=== PATIENT | male | born 1975 | race American Indian/Alaskan Native ===

== ENCOUNTER 2016-08-17 22:46 | Inpatient (IN) | payer OTHER ==
[2016-08-18 00:21] LABS: Basophils % (Auto) 0.3 % (0.0-1.8); Eosinophils % (Auto) 0.1 % (0.0-4.3); Hematocrit 49.1 % (35.5-45.6); Hemoglobin 16.1 gm/dl (11.8-15.2); Mean Corpuscular HGB Conc 33 % (32-34); Mean Corpuscular Hemoglobin 31 pg (28-32); Mean Corpuscular Volume 95 fl (84-94); Platelet Count 321 K/mm3 (140-440); Red Blood Count 5.18 M/mm3 (3.65-5.03); Red Cell Distribution Width 12.6 % (13.2-15.2); White Blood Count 10.8 K/mm3 (4.5-11.0)
[2016-08-18 00:41] LABS: BUN/Creatinine Ratio 18.46; Blood Urea Nitrogen 24 mg/dL (9-20); Calcium 10.4 mg/dL (8.4-10.2); Carbon Dioxide 19 mmol/L (22-30); Chloride 89.8 mmol/L (98-107); Potassium 5.7 mmol/L (3.6-5.0); Sodium 135 mmol/L (137-145)
[2016-08-18 00:53] LABS: Bilirubin,Urine NEG (Negative); Blood,Urine NEG (Negative); Ketones,Urine 80 mg/dL (Negative); Leukocyte Esterase,Urine NEG (Negative); Mucus,Urine FEW /HPF; Nitrite,Urine NEG (Negative); Protein,Urine <15 mg/dL mg/dL (Negative); Urobilinogen,Urine < 2.0 mg/dL (<2.0)
[2016-08-18 01:06] LABS: Anion Gap 32 mmol/L
[2016-08-18 01:07] LABS: Glucose 723 mg/dL (75-100)
[2016-08-18 02:07] LABS: B-Hydroxybutyrate 59.2 mg/dL (0.2-2.8)
[2016-08-18] MEDS ORDERED: D50W (25GM) IV PRN ×2 (04:07→15:52)
--- NOTE | 2016-08-18 04:10 | Emergency Department Report ---
ED General Adult HPI - General Chief complaint: Hyperglycemia Stated complaint: HIGH SUGAR LEVEL Time Seen by Provider: 08/18/16 03:55 Source: patient, RN notes reviewed Mode of arrival: Ambulatory Limitations: No Limitations - History of Present Illness Initial comments: This is a 41-year-old male, previously unknown to me. Has a past medical history of hypertension and obesity. He is presented to the ER with a complaint of hyperglycemia. He had outpatient laboratory studies done, and he was instructed by his physician to present to the ER. He admits to polyuria, polydipsia, fatigue. No fevers or chills. No chest pain or shortness of breath. Patient reports his symptoms have been gradual, and they're slightly increasing. As far she knows, he does not have a history of diabetes. Upon arrival, patient was found to be acidotic, with hyperglycemia, positive serum ketones, consistent with diabetic ketoacidosis. He was started on IV fluids, insulin push, insulin drip. The case was discussed with the Hospital physician, Dr. Cochran, who accepted the patient to her service. -: Gradual Severity scale (0 -10): 0 Consistency: constant Improves with: none Worsens with: none Associated Symptoms: loss of appetite, malaise, weakness. denies: confusion, chest pain, cough, diaphoresis, fever/chills - Related Data Previous Rx's Medication Instructions Recorded Last Taken Type Hydrochlorothiazide [HCTZ] 25 mg PO DAILY #30 capsule 08/19/16 Unknown Rx Insulin Aspart [NovoLOG Flexpen] 15 units SQ AC #5 pen 08/19/16 Unknown Rx Insulin Glargine,Hum.rec.anlog 50 units SQ QHS #5 pen 08/19/16 Unknown Rx [Lantus Solostar] Lisinopril [Zestril TAB] 20 mg PO QDAY #30 tablet 08/19/16 Unknown Rx Pen Needle, Diabetic [1St Tier 1 each ACHS #100 dis.needle 08/19/16 Unknown Rx Unifine Pentips Plus] glipiZIDE XL [Glucotrol Xl] 10 mg PO QDDIAB #60 tablet 08/19/16 Unknown Rx metFORMIN [Glucophage] 1,000 mg PO BIDDIAB #60 tablet 08/19/16 Unknown Rx Allergies Allergy/AdvReac Type Severity Reaction Status Date / Time No Known Allergies Allergy Unverified 01/18/17 23:33 ED Review of Systems ROS: Stated complaint: HIGH SUGAR LEVEL Other details as noted in HPI Constitutional: malaise, weakness Eyes: denies: vision change ENT: denies: epistaxis Respiratory: denies: cough Cardiovascular: denies: chest pain Gastrointestinal: denies: abdominal pain, nausea, diarrhea Genitourinary: frequency Musculoskeletal: as per HPI Skin: as per HPI Neurological: as per HPI Psychiatric: as per HPI ED Past Medical Hx - Medications Home Medications: Home Medications Medication Instructions Recorded Confirmed Last Taken Type Hydrochlorothiazide [HCTZ] 25 mg PO DAILY #30 capsule 08/19/16 Unknown Rx Insulin Aspart [NovoLOG Flexpen] 15 units SQ AC #5 pen 08/19/16 Unknown Rx Insulin Glargine,Hum.rec.anlog 50 units SQ QHS #5 pen 08/19/16 Unknown Rx [Lantus Solostar] Lisinopril [Zestril TAB] 20 mg PO QDAY #30 tablet 08/19/16 Unknown Rx Pen Needle, Diabetic [1St Tier 1 each [facility] #100 dis.needle 08/19/16 Unknown Rx Unifine Pentips Plus] glipiZIDE XL [Glucotrol Xl] 10 mg PO QDDIAB #60 tablet 08/19/16 Unknown Rx metFORMIN [Glucophage] 1,000 mg PO BIDDIAB #60 tablet 08/19/16 Unknown Rx ED Physical Exam - General Limitations: No Limitations General appearance: alert, in no apparent distress - Head Head exam: Present: atraumatic, normocephalic - Eye Eye exam: Present: normal appearance, EOMI. Absent: nystagmus - ENT ENT exam: Present: normal exam, normal orophraynx, mucous membranes moist - Neck Neck exam: Present: normal inspection, full ROM. Absent: tenderness, meningismus - Respiratory Respiratory exam: Present: normal lung sounds bilaterally. Absent: respiratory distress, wheezes, rales, rhonchi, stridor, chest wall tenderness - Cardiovascular Cardiovascular Exam: Present: normal rhythm, tachycardia, normal heart sounds. Absent: systolic murmur, diastolic murmur, rubs, gallop - GI/Abdominal GI/Abdominal exam: Present: soft, normal bowel sounds. Absent: distended, tenderness, guarding, rebound, rigid, pulsatile mass - Rectal Rectal exam: Present: deferred - Extremities Exam Extremities exam: Present: normal inspection, full ROM, normal capillary refill. Absent: tenderness, pedal edema, joint swelling, calf tenderness - Back Exam Back exam: Present: normal inspection, full ROM. Absent: tenderness, CVA tenderness (R), CVA tenderness (L), muscle spasm, paraspinal tenderness, vertebral tenderness - Neurological Exam Neurological exam: Present: alert, oriented X3, normal gait, other (Extraocular movements intact. Tongue midline. No facial droop. Facial sensation intact to light touch in the V1, V2, V3 distribution bilaterally. 5 and 5 strength in 4 extremities.. Sensation is intact to light touch in 4 extremities.). Absent : motor sensory deficit - Psychiatric Psychiatric exam: Present: normal affect, normal mood - Skin Skin exam: Present: warm, dry, intact, normal color. Absent: rash ED Course Vital Signs 08/17/16 08/18/16 08/18/16 23:33 05:44 06:56 Temperature 98.3 F 98.4 F Pulse Rate 103 H 67 Respiratory 22 20 20 Rate Blood Pressure Blood Pressure 157/103 145/65 [Left] O2 Sat by Pulse 98 98 99 Oximetry 08/18/16 08/18/16 08/18/16 07:56 08:56 09:31 Temperature 98.2 F 98.3 F Pulse Rate 70 73 75 Respiratory 20 18 14 Rate Blood Pressure Blood Pressure 140/65 141/73 [Left] O2 Sat by Pulse 99 98 Oximetry 08/18/16 08/18/16 08/18/16 10:00 11:00 12:00 Temperature Pulse Rate 72 73 74 Respiratory 16 14 17 Rate Blood Pressure 150/70 148/79 161/77 Blood Pressure [Left] O2 Sat by Pulse 97 95 98 Oximetry 08/18/16 08/18/16 08/18/16 12:11 13:00 14:00 Temperature Pulse Rate 79 70 71 Respiratory 16 15 18 Rate Blood Pressure 161/77 157/92 145/74 Blood Pressure [Left] O2 Sat by Pulse 98 98 99 Oximetry 08/18/16 08/18/16 08/18/16 15:00 15:01 17:00 Temperature 98.5 F 97.7 F Pulse Rate 77 72 90 Respiratory 16 14 18 Rate Blood Pressure 145/74 Blood Pressure 145/78 127/83 [Left] O2 Sat by Pulse 99 97 100 Oximetry ED Medical Decision Making - Lab Data Result diagrams: 08/19/16 05:47 08/19/16 09:01 Vital Signs 08/17/16 08/18/16 23:33 05:44 Temperature 98.3 F Pulse Rate 103 H Respiratory 22 20 Rate Blood Pressure 157/103 [Left] O2 Sat by Pulse 98 98 Oximetry Lab Results 08/17/16 08/18/16 08/18/16 Range/Units 23:51 00:04 00:04 WBC 10.8 (4.5-11.0) K/mm3 RBC 5.18 H (3.65-5.03) M/mm3 Hgb 16.1 H (11.8-15.2) gm/dl Hct 49.1 H (35.5-45.6) % MCV 95 H (84-94) fl MCH 31 (28-32) pg MCHC 33 (32-34) % RDW 12.6 L (13.2-15.2) % Plt Count 321 (140-440) K/mm3 Lymph % (Auto) 10.9 L (13.4-35.0) % [place] % (Auto) 7.0 (0.0-7.3) % Eos % (Auto) 0.1 (0.0-4.3) % Baso % (Auto) 0.3 (0.0-1.8) % Lymph # 1.2 (1.2-5.4) K/mm3 [place] # 0.8 (0.0-0.8) K/mm3 Eos # 0.0 (0.0-0.4) K/mm3 Baso # 0.0 (0.0-0.1) K/mm3 Seg Neutrophils % 81.7 H (40.0-70.0) % Seg Neutrophils # 8.8 H (1.8-7.7) K/mm3 VBG pH (7.320-7.420) Sodium 135 L (137-145) mmol/L Potassium 5.7 H (3.6-5.0) mmol/L Chloride 89.8 L (98-107) mmol/L Carbon Dioxide 19 L (22-30) mmol/L Anion Gap 32 mmol/L BUN 24 H (9-20) mg/dL Creatinine 1.3 (0.8-1.5) mg/dL Estimated GFR > 60 ml/min BUN/Creatinine Ratio 18.46 % Glucose 723 H* (75-100) mg/dL POC Glucose > 500 H (70-105) Hemoglobin A1c (4-6) % Calcium 10.4 H (8.4-10.2) mg/dL Phosphorus (2.5-4.5) mg/dL Magnesium (1.7-2.3) mg/dL Urine Color (Yellow) Urine Turbidity (Clear) Urine pH (5.0-7.0) Ur Specific [place] (1.003-1.030) Urine Protein (Negative) mg/dL Urine Glucose (UA) (Negative) mg/dL Urine Ketones (Negative) mg/dL Urine Blood (Negative) Urine Nitrite (Negative) Urine Bilirubin (Negative) Urine Urobilinogen (<2.0) mg/dL Ur Leukocyte Esterase (Negative) Urine WBC (Auto) (0.0-6.0) /HPF Urine RBC (Auto) (0.0-6.0) /HPF U Epithel Cells (Auto) (0-13.0) /HPF Urine Mucus /HPF Ketones 59.2 H (0.2-2.8) mg/dL 08/18/16 08/18/16 08/18/16 Range/Units 00:04 00:27 04:22 WBC (4.5-11.0) K/mm3 RBC (3.65-5.03) M/mm3 Hgb (11.8-15.2) gm/dl Hct (35.5-45.6) % MCV (84-94) fl MCH (28-32) pg MCHC (32-34) % RDW (13.2-15.2) % Plt Count (140-440) K/mm3 Lymph % (Auto) (13.4-35.0) % [place] % (Auto) (0.0-7.3) % Eos % (Auto) (0.0-4.3) % Baso % (Auto) (0.0-1.8) % Lymph # (1.2-5.4) K/mm3 [place] # (0.0-0.8) K/mm3 Eos # (0.0-0.4) K/mm3 Baso # (0.0-0.1) K/mm3 Seg Neutrophils % (40.0-70.0) % Seg Neutrophils # (1.8-7.7) K/mm3 VBG pH 7.279 L (7.320-7.420) Sodium (137-145) mmol/L Potassium (3.6-5.0) mmol/L Chloride (98-107) mmol/L Carbon Dioxide (22-30) mmol/L Anion Gap mmol/L BUN (9-20) mg/dL Creatinine (0.8-1.5) mg/dL Estimated GFR ml/min BUN/Creatinine Ratio % Glucose (75-100) mg/dL POC Glucose > 500 H (70-105) Hemoglobin A1c (4-6) % Calcium (8.4-10.2) mg/dL Phosphorus (2.5-4.5) mg/dL Magnesium (1.7-2.3) mg/dL Urine Color Straw (Yellow) Urine Turbidity Clear (Clear) Urine pH 5.0 (5.0-7.0) Ur Specific [place] 1.027 (1.003-1.030) Urine Protein <15 mg/dl (Negative) mg/dL Urine Glucose (UA) >=500 (Negative) mg/dL Urine Ketones 80 (Negative) mg/dL Urine Blood Neg (Negative) Urine Nitrite Neg (Negative) Urine Bilirubin Neg (Negative) Urine Urobilinogen < 2.0 (<2.0) mg/dL Ur Leukocyte Esterase Neg (Negative) Urine WBC (Auto) 2.0 (0.0-6.0) /HPF Urine RBC (Auto) 1.0 (0.0-6.0) /HPF U Epithel Cells (Auto) 1.0 (0-13.0) /HPF Urine Mucus Few /HPF Ketones (0.2-2.8) mg/dL 08/18/16 08/18/16 08/18/16 Range/Units 04:24 04:24 04:24 WBC (4.5-11.0) K/mm3 RBC (3.65-5.03) M/mm3 Hgb (11.8-15.2) gm/dl Hct (35.5-45.6) % MCV (84-94) fl MCH (28-32) pg MCHC (32-34) % RDW (13.2-15.2) % Plt Count (140-440) K/mm3 Lymph % (Auto) (13.4-35.0) % [place] % (Auto) (0.0-7.3) % Eos % (Auto) (0.0-4.3) % Baso % (Auto) (0.0-1.8) % Lymph # (1.2-5.4) K/mm3 [place] # (0.0-0.8) K/mm3 Eos # (0.0-0.4) K/mm3 Baso # (0.0-0.1) K/mm3 Seg Neutrophils % (40.0-70.0) % Seg Neutrophils # (1.8-7.7) K/mm3 VBG pH (7.320-7.420) Sodium 126 L D (137-145) mmol/L Potassium 9.9 H* D (3.6-5.0) mmol/L Chloride 84.3 L (98-107) mmol/L Carbon Dioxide 16 L (22-30) mmol/L Anion Gap 36 mmol/L BUN 26 H (9-20) mg/dL Creatinine 1.5 (0.8-1.5) mg/dL Estimated GFR > 60 ml/min BUN/Creatinine Ratio 17.33 % Glucose 716 H* (75-100) mg/dL POC Glucose (70-105) Hemoglobin A1c 13.0 H (4-6) % Calcium 9.8 (8.4-10.2) mg/dL Phosphorus 6.7 H (2.5-4.5) mg/dL Magnesium 2.7 H (1.7-2.3) mg/dL Urine Color (Yellow) Urine Turbidity (Clear) Urine pH (5.0-7.0) Ur Specific [place] (1.003-1.030) Urine Protein (Negative) mg/dL Urine Glucose (UA) (Negative) mg/dL Urine Ketones (Negative) mg/dL Urine Blood (Negative) Urine Nitrite (Negative) Urine Bilirubin (Negative) Urine Urobilinogen (<2.0) mg/dL Ur Leukocyte Esterase (Negative) Urine WBC (Auto) (0.0-6.0) /HPF Urine RBC (Auto) (0.0-6.0) /HPF U Epithel Cells (Auto) (0-13.0) /HPF Urine Mucus /HPF Ketones (0.2-2.8) mg/dL 08/18/16 Range/Units 06:12 WBC (4.5-11.0) K/mm3 RBC (3.65-5.03) M/mm3 Hgb (11.8-15.2) gm/dl Hct (35.5-45.6) % MCV (84-94) fl MCH (28-32) pg MCHC (32-34) % RDW (13.2-15.2) % Plt Count (140-440) K/mm3 Lymph % (Auto) (13.4-35.0) % [place] % (Auto) (0.0-7.3) % Eos % (Auto) (0.0-4.3) % Baso % (Auto) (0.0-1.8) % Lymph # (1.2-5.4) K/mm3 [place] # (0.0-0.8) K/mm3 Eos # (0.0-0.4) K/mm3 Baso # (0.0-0.1) K/mm3 Seg Neutrophils % (40.0-70.0) % Seg Neutrophils # (1.8-7.7) K/mm3 VBG pH (7.320-7.420) Sodium 137 D (137-145) mmol/L Potassium 5.0 D (3.6-5.0) mmol/L Chloride 93.8 L (98-107) mmol/L Carbon Dioxide 16 L (22-30) mmol/L Anion Gap 32 mmol/L BUN 24 H (9-20) mg/dL Creatinine 1.3 (0.8-1.5) mg/dL Estimated GFR > 60 ml/min BUN/Creatinine Ratio 18.46 % Glucose 573 H* (75-100) mg/dL POC Glucose (70-105) Hemoglobin A1c (4-6) % Calcium 9.7 (8.4-10.2) mg/dL Phosphorus (2.5-4.5) mg/dL Magnesium (1.7-2.3) mg/dL Urine Color (Yellow) Urine Turbidity (Clear) Urine pH (5.0-7.0) Ur Specific [place] (1.003-1.030) Urine Protein (Negative) mg/dL Urine Glucose (UA) (Negative) mg/dL Urine Ketones (Negative) mg/dL Urine Blood (Negative) Urine Nitrite (Negative) Urine Bilirubin (Negative) Urine Urobilinogen (<2.0) mg/dL Ur Leukocyte Esterase (Negative) Urine WBC (Auto) (0.0-6.0) /HPF Urine RBC (Auto) (0.0-6.0) /HPF U Epithel Cells (Auto) (0-13.0) /HPF Urine Mucus /HPF Ketones (0.2-2.8) mg/dL - Differential Diagnosis hyperglycemia, diabetic ketoacidosis Critical Care Time: Yes Critical care time in (mins) excluding proc time.: 35 Critical care attestation.: If time is entered above; I have spent that time in minutes in the direct care of this critically ill patient, excluding procedure time. Critical Care Time: Critical care time includes multiple bedside evaluations, interpretation of laboratory studies, time spent managing a patient with diabetic ketoacidosis requiring initiation of insulin drip. This excludes procedure time. ED Disposition Clinical Impression: Diabetic ketoacidosis Qualifiers: Diabetes mellitus complication detail: without coma Disposition: OP ADMITTED IP TO THIS HOSP Is pt being admited?: Yes Does the pt Need Aspirin: No Condition: Good
[2016-08-18 04:53] LABS: BUN/Creatinine Ratio 17.33; Blood Urea Nitrogen 26 mg/dL (9-20); Calcium 9.8 mg/dL (8.4-10.2); Carbon Dioxide 16 mmol/L (22-30); Chloride 84.3 mmol/L (98-107)
[2016-08-18 05:00] LABS: Magnesium 2.7 mg/dL (1.7-2.3); Phosphorous 6.7 mg/dL (2.5-4.5)
[2016-08-18] MEDS ORDERED: NovoLIN R 100 UNITS in NACL 0.9% 99 ML IV SCH ×2 (05:00→15:52)
[2016-08-18] MEDS ORDERED: NACL 0.9% 1000 ML IV ONE (05:00)
[2016-08-18 05:03] LABS: Anion Gap 36 mmol/L; Glucose 716 mg/dL (75-100)
[2016-08-18 05:04] LABS: Potassium 9.9 mmol/L (3.6-5.0); Sodium 126 mmol/L (137-145)
--- NOTE | 2016-08-18 05:09 | History and Physical Report ---
History of Present Illness Date of examination: 08/18/16 History of present illness: 41-year-old man with a history of morbid obesity, was sent to the emergency room for elevated blood sugar. Patient states he saw his primary care yesterday , was diagnosed with hypertension, blood pressure in the office was 170/110, he was started on antihypertensive. He had lab work done in around 10:00 last night he received a call to the emergency room for elevated glucose level. Patient stated that over the last 1 week he is been having generalized weakness , dry mouth, polyuria, polydipsia, weight loss. Other last 1 month she started going to the gym, he has been drinking increased amount of water and extremities his symptoms to this. Patient denies chest pain, palpitation, shortness of breath, cough, abdominal pain, hematochezia, dysuria, frequency, focal weakness, dysarthria, fever chills , hot or cold intolerance, easy bruisability, or rash or bleeding from mucosal membrane, rhinorrhea, epistaxis, earache, tinnitus, blurry vision, eye discharge , anxiety, depression. Other review of systems negative PAST SURGICAL HISTORY: None SOCIAL HISTORY: Denies alcohol, tobacco, drugs FAMILY HISTORY: Diabetes Medications and Allergies Allergies Allergy/AdvReac Type Severity Reaction Status Date / Time No Known Allergies Allergy Unverified 08/17/16 23:33 Active Meds: Active Medications Dextrose (D50w (25gm)) 0 ml IV PRN PRN PRN Reason: Hypoglycemia Insulin Human Regular 100 (units/ Sodium Chloride) 100 mls @ 1 mls/hr IV TITR SUSHANT; 1 UNITS/HR PRN Reason: Protocol Sodium Chloride (Nacl 0.9% 1000 Ml) 1,000 mls @ 150 mls/hr IV DIRECT SUSHANT Exam - Physical Exam Narrative exam: Gen. appearance: Patient lying in bed, no apparent distress HEENT: Normocephalic, atraumatic, pupils equally round and reactive to light, extraocular movement intact, and no sclericterus,. No JVD or thyromegaly or nodule,neck supple, no carotid bruit ,mucous membranes moist, no exudate or erythema Heart: S1, S2, regular rate and rhythm Lungs: Clear to auscultation bilaterally, breathing comfortable Abdomen: Positive bowel sounds, nontender, nondistended, no organomegaly Extremity: No edema, cyanosis, clubbing Skin: No rash, nodules, warm, dry Neuro: Oriented 3, cranial nerves II-12 intact, speech is fluent, motor and sensory intact - Constitutional Vitals: Temp Pulse Resp BP Pulse Ox 98.3 F 103 H 22 157/103 98 08/17/16 23:33 08/17/16 23:33 08/17/16 23:33 08/17/16 23:33 08/17/16 23:33 Results - Labs CBC & Chem 7: 08/18/16 00:04 08/18/16 04:24 Labs: Abnormal lab results 08/17/16 08/18/16 08/18/16 Range/Units 23:51 00:04 00:04 RBC 5.18 H (3.65-5.03) M/mm3 Hgb 16.1 H (11.8-15.2) gm/dl Hct 49.1 H (35.5-45.6) % MCV 95 H (84-94) fl RDW 12.6 L (13.2-15.2) % Lymph % (Auto) 10.9 L (13.4-35.0) % Seg Neutrophils % 81.7 H (40.0-70.0) % Seg Neutrophils # 8.8 H (1.8-7.7) K/mm3 VBG pH (7.320-7.420) Sodium 135 L (137-145) mmol/L Potassium 5.7 H (3.6-5.0) mmol/L Chloride 89.8 L (98-107) mmol/L Carbon Dioxide 19 L (22-30) mmol/L BUN 24 H (9-20) mg/dL Glucose 723 H* (75-100) mg/dL POC Glucose > 500 H (70-105) Hemoglobin A1c (4-6) % Calcium 10.4 H (8.4-10.2) mg/dL Phosphorus (2.5-4.5) mg/dL Magnesium (1.7-2.3) mg/dL Ketones 59.2 H (0.2-2.8) mg/dL 08/18/16 08/18/16 08/18/16 Range/Units 00:04 04:22 04:24 RBC (3.65-5.03) M/mm3 Hgb (11.8-15.2) gm/dl Hct (35.5-45.6) % MCV (84-94) fl RDW (13.2-15.2) % Lymph % (Auto) (13.4-35.0) % Seg Neutrophils % (40.0-70.0) % Seg Neutrophils # (1.8-7.7) K/mm3 VBG pH 7.279 L (7.320-7.420) Sodium (137-145) mmol/L Potassium (3.6-5.0) mmol/L Chloride (98-107) mmol/L Carbon Dioxide (22-30) mmol/L BUN (9-20) mg/dL Glucose (75-100) mg/dL POC Glucose > 500 H (70-105) Hemoglobin A1c 13.0 H (4-6) % Calcium (8.4-10.2) mg/dL Phosphorus (2.5-4.5) mg/dL Magnesium (1.7-2.3) mg/dL Ketones (0.2-2.8) mg/dL 08/18/16 08/18/16 Range/Units 04:24 04:24 RBC (3.65-5.03) M/mm3 Hgb (11.8-15.2) gm/dl Hct (35.5-45.6) % MCV (84-94) fl RDW (13.2-15.2) % Lymph % (Auto) (13.4-35.0) % Seg Neutrophils % (40.0-70.0) % Seg Neutrophils # (1.8-7.7) K/mm3 VBG pH (7.320-7.420) Sodium 126 L D (137-145) mmol/L Potassium 9.9 H* D (3.6-5.0) mmol/L Chloride 84.3 L (98-107) mmol/L Carbon Dioxide 16 L (22-30) mmol/L BUN 26 H (9-20) mg/dL Glucose 716 H* (75-100) mg/dL POC Glucose (70-105) Hemoglobin A1c (4-6) % Calcium (8.4-10.2) mg/dL Phosphorus 6.7 H (2.5-4.5) mg/dL Magnesium 2.7 H (1.7-2.3) mg/dL Ketones (0.2-2.8) mg/dL Assessment and Plan New onset DKA Metabolic acidosis Dehydration Hypertension new-onset Morbid obesity Admits medicine Start insulin drip, IV fluid, monitor chemistry, fingersticks Check hemoglobin A1c, consult critical care Continue outpatient antihypertensive Complies discussed with patient in details, start DVT prophylaxis Potassium level 9.9, hemolysed specimen, repeat bmp
[2016-08-18] MEDS ORDERED: PEPCID IV ONE (05:10)
[2016-08-18] MEDS: PEPCID PO SCH (06:00)
[2016-08-18] MEDS ORDERED: PEPCID ONE (06:04)
[2016-08-18 06:46] LABS: BUN/Creatinine Ratio 18.46; Blood Urea Nitrogen 24 mg/dL (9-20); Calcium 9.7 mg/dL (8.4-10.2); Carbon Dioxide 16 mmol/L (22-30); Chloride 93.8 mmol/L (98-107); Sodium 137 mmol/L (137-145)
[2016-08-18 06:47] LABS: Anion Gap 32 mmol/L
[2016-08-18 06:48] LABS: Glucose 573 mg/dL (75-100)
[2016-08-18 07:10] LABS: BUN/Creatinine Ratio 19.16; Blood Urea Nitrogen 23 mg/dL (9-20); Calcium 9.3 mg/dL (8.4-10.2); Carbon Dioxide 13 mmol/L (22-30); Chloride 95.6 mmol/L (98-107); Potassium 5.6 mmol/L (3.6-5.0); Sodium 136 mmol/L (137-145)
[2016-08-18 07:22] LABS: Anion Gap 33 mmol/L
[2016-08-18 07:23] LABS: Glucose 513 mg/dL (75-100)
[2016-08-18] MEDS: NACL 0.9% 1000 ML 1,000 ML IV SCH ×3 (07:43→22:34)
--- NOTE | 2016-08-18 08:03 | Admit Criteria Form ---
Admission Criteria Documentation: DIABETES Clinical Indications for Admission to Inpatient Care (Place 'X' for any and all applicable criteria): Admission is indicated by presence of ALL (if I & II) or ANY ONE (if III or IV) of the following (1)(2)(3)(4): [X]I. Diabetes is uncontrolled as indicated by ANY ONE of the following: [X]a) Diabetic ketoacidosis as indicated by ALL of the following (8): [X]i) Hyperglycemia (eg, plasma glucose greater than 200 mg/ dL (11.1 mmol/L)) [X]ii) Acidosis (eg, arterial pH less than 7.30, serum bicarbonate level less than 15 mEq/L (mmol/L)) [X]iii) Moderate ketonuria or ketonemia [ ]b) Hyperglycemic hyperosmolar state as indicated by ALL of the following(9)(10): [ ]i) Neurologic dysfunction (eg, stupor, coma, hemiparesis , seizure)(13) [ ]ii) Plasma glucose greater than 600 mg/dL (33.3 mmol/L) [ ]iii) Serum osmolality greater than 320 mOsm/kg (mmol/kg) [X]c) Severe signs or symptoms secondary to hyperglycemia indicated by ANY ONE of the following: [ ]i) Altered mental status(10) [ ]ii) Significant hypovolemia or dehydration [ ]iii) Intractable nausea or vomiting [ ]iv) Unexplained fever or severe infection [X]v) Severe electrolyte abnormality (eg, hypokalemia, hyperkalemia, hypernatremia) [ ]II. Management at other levels of care (Also use Diabetes: Observation Care as appropriate) is not feasible because of ANY ONE of the following: [ ]a) Condition was not adequately corrected with treatment at other levels of care. [ ]b) Treatment at other levels of care is not appropriate because of condition severity (eg, hyperosmolar coma). [ ]III. Contraindications and/or Inappropriate clinical situations for Observational Care in patients with Diabetes, when ANY ONE of the following is required: [ ]a) Patient require specific diagnostic workup or therapeutic intervention 22 [ ]b) Patient with abnormal vital signs or altered mental status 23 [ ]IV. General contraindications and/or Inappropriate clinical situations for Observational Care in patients with Diabetes, when ANY ONE of the following is required: [ ]a) Prediction of prolongation of LOS based on ANY ONE of the following may be considered as a contraindication for observational care 2, 3, 4, 5, 6, 7, 8, 9, 10, 11 [ ]i) Age > 65 yrs. [ ]ii) Patient arriving by ambulance [ ]iii) Patient with high acuity [ ]iv) Patient requiring vital sign monitoring [ ]v) Patient on IV medication [ ]b) Systolic blood pressures 180mmHg 3,12 [ ]c) Patient with altered mental status including delirium and other alteration of consciousness, (3) [ ]d) Patient whose discharge disposition will be to a group home home or rehabilitation home should not be managed in Emergency Department Observation Unit. CMS rule requires 3 days hospital stay before such placement.3,13 [ ]e) Patient with failure to thrive due to broad array of etiologies 3,16,17 [ ]f) Inability to ambulate 3,14 Extended stay beyond goal length of stay may be needed for(3)(20): [ ]a) Treatment of precipitating causes [ ]b) Development of hypoglycemia [ ]c) Complications of treatment [ ]d) Complications of decompensated diabetes (eg, acute gastric dilatation, persistent metabolic or neurologic derangement) [ ]e) Active Comorbidities [ ]f) Older patients( 65 years or older) The original [employer] content created by [employer] has been revised. The portions of the content which have been revised are identified through the use of italic text or in bold,and [facility] has neither reviewed nor approved the modified material. All other unmodified content is copyright [employer]. Please see references footnoted in the original [employer] [facility] edition 2016 Admission Criteria Met: Yes
[2016-08-18 09:19] LABS: Anion Gap 32 mmol/L; Blood Urea Nitrogen 21 mg/dL (9-20); Calcium 9.6 mg/dL (8.4-10.2); Carbon Dioxide 14 mmol/L (22-30); Glucose 400 mg/dL (75-100); Potassium 4.6 mmol/L (3.6-5.0); Sodium 141 mmol/L (137-145)
[2016-08-18 11:55] LABS: Anion Gap 26 mmol/L; BUN/Creatinine Ratio 19.09; Blood Urea Nitrogen 21 mg/dL (9-20); Calcium 9.6 mg/dL (8.4-10.2); Carbon Dioxide 20 mmol/L (22-30); Chloride 101.3 mmol/L (98-107); Glucose 312 mg/dL (75-100); Potassium 4.9 mmol/L (3.6-5.0); Sodium 142 mmol/L (137-145)
[2016-08-18 13:44] LABS: Anion Gap 24 mmol/L; Blood Urea Nitrogen 20 mg/dL (9-20); Calcium 9.5 mg/dL (8.4-10.2); Carbon Dioxide 20 mmol/L (22-30); Chloride 101.7 mmol/L (98-107); Glucose 275 mg/dL (75-100); Potassium 4.9 mmol/L (3.6-5.0); Sodium 141 mmol/L (137-145)
[2016-08-18] MEDS ORDERED: TYLENOL PO PRN (15:52)
[2016-08-18] MEDS ORDERED: ALUM-MAG HYDROX-SIMETH 200-200-20MG/5ML PO PRN (15:52)
[2016-08-18] MEDS ORDERED: ZOFRAN IV PRN (15:52)
[2016-08-18] MEDS ORDERED: DULCOLAX PR PRN (15:52)
[2016-08-18] MEDS ORDERED: MILK OF MAGNESIA PO PRN (15:52)
[2016-08-18] MEDS ORDERED: D5W/0.45% NACL/KCL 20 MEQ 1,000 ML IV SCH (15:52)
[2016-08-18] MEDS ORDERED: D5/0.45NS 1,000 ML IV ONE (15:59)
[2016-08-18] MEDS: NOVOLOG SUB-Q SCH ×4 (17:02→22:32)
[2016-08-18] MEDS: LOVENOX SUB-Q SCH (17:02)
[2016-08-18 17:07] LABS: Blood Urea Nitrogen 18 mg/dL (9-20); Calcium 9.1 mg/dL (8.4-10.2); Carbon Dioxide 21 mmol/L (22-30); Chloride 103.7 mmol/L (98-107); Glucose 218 mg/dL (75-100); Magnesium 2.5 mg/dL (1.7-2.3); Phosphorous 2.3 mg/dL (2.5-4.5); Potassium 3.9 mmol/L (3.6-5.0); Sodium 142 mmol/L (137-145)
[2016-08-18 17:12] LABS: Anion Gap 21 mmol/L
[2016-08-18] MEDS: GLUCOPHAGE PO SCH (17:19)
[2016-08-18 20:56] LABS: Anion Gap 25 mmol/L; Blood Urea Nitrogen 19 mg/dL (9-20); Calcium 8.8 mg/dL (8.4-10.2); Carbon Dioxide 18 mmol/L (22-30); Chloride 99.4 mmol/L (98-107); Glucose 356 mg/dL (75-100); Potassium 5.2 mmol/L (3.6-5.0); Sodium 137 mmol/L (137-145)
[2016-08-18] MEDS ORDERED: LEVEMIR SUB-Q SCH (22:00)
[2016-08-19 01:48] LABS: Blood Urea Nitrogen 16 mg/dL (9-20); Calcium 8.6 mg/dL (8.4-10.2); Carbon Dioxide 22 mmol/L (22-30); Chloride 99.6 mmol/L (98-107); Glucose 315 mg/dL (75-100); Potassium 4.3 mmol/L (3.6-5.0); Sodium 138 mmol/L (137-145)
[2016-08-19 01:50] LABS: Anion Gap 21 mmol/L
[2016-08-19 06:06] LABS: Basophils % (Auto) 0.5 % (0.0-1.8); Eosinophils % (Auto) 1.2 % (0.0-4.3); Hemoglobin 13.9 gm/dl (11.8-15.2); Mean Corpuscular HGB Conc 34 % (32-34); Mean Corpuscular Hemoglobin 31 pg (28-32); Mean Corpuscular Volume 93 fl (84-94); Platelet Count 245 K/mm3 (140-440); Red Blood Count 4.45 M/mm3 (3.65-5.03); Red Cell Distribution Width 12.3 % (13.2-15.2); White Blood Count 8.9 K/mm3 (4.5-11.0)
[2016-08-19 06:13] LABS: Hematocrit 43.2 % (35.5-45.6)
[2016-08-19 06:25] LABS: BUN/Creatinine Ratio 16.66; Blood Urea Nitrogen 15 mg/dL (9-20); Calcium 8.3 mg/dL (8.4-10.2); Carbon Dioxide 22 mmol/L (22-30); Chloride 101.4 mmol/L (98-107); Glucose 299 mg/dL (75-100); Potassium 3.9 mmol/L (3.6-5.0); Sodium 140 mmol/L (137-145)
[2016-08-19 06:29] LABS: Anion Gap 21 mmol/L
[2016-08-19] MEDS: NACL 0.9% 1000 ML 1,000 ML IV SCH (06:35)
[2016-08-19] MEDS: NOVOLOG SUB-Q SCH ×6 (07:30→17:29)
[2016-08-19] MEDS ORDERED: GLUCOTROL XL PO SCH (08:00)
[2016-08-19] MEDS: GLUCOPHAGE PO SCH ×2 (09:19→17:28)
[2016-08-19] MEDS: PEPCID PO SCH (09:32)
[2016-08-19 09:38] LABS: Anion Gap 21 mmol/L; BUN/Creatinine Ratio 16.25; Blood Urea Nitrogen 13 mg/dL (9-20); Calcium 8.5 mg/dL (8.4-10.2); Carbon Dioxide 21 mmol/L (22-30); Chloride 100.3 mmol/L (98-107); Glucose 288 mg/dL (75-100); Potassium 3.9 mmol/L (3.6-5.0); Sodium 138 mmol/L (137-145)
[2016-08-19] MEDS ORDERED: ZESTRIL PO SCH (10:00)
[2016-08-19] MEDS: LOVENOX SUB-Q SCH (10:17)
--- NOTE | 2016-08-19 14:30 | Discharge Summary ---
Providers - Providers Date of Admission: 08/18/16 05:04 Attending physician: RIKA FELIX MD 08/18/16 05:30 Consult to Physician [CONS] Routine Consulting Provider: JOSE DAVID CHINO Reason For Exam: DKA icu admission Place consult to:: answering service Notified:: yes Phone number called:: [phone] Was contact made?: Yes If yes, spoke with:: [place] Time called:: 06:06 Primary care physician: KATY BAUGH Hospitalization Condition: Good Hospital course: 41M with newly diagnosed DM by his PCP was sent from PCP office for hyperglycemia, was found to be in DKA, rx with insulin drip and then transitioned to subq insulin, he was provided education on how to use insulin and diabetic diet. For HTN, he was started on BP meds. Dc Diagnosis 1. Diabetes- uncontrolled 2. DKA 3. HTN Disposition: DISCHARGED TO HOME OR SELFCARE Time spent for discharge: 35 minutes Core Measure Documentation - Palliative Care Palliative Care/ Comfort Measures: Not Applicable - Core Measures Any of the following diagnoses?: none Exam - Constitutional Vitals: Temp Pulse Resp BP Pulse Ox 98.3 F 82 15 156/84 99 08/19/16 07:10 08/19/16 10:16 08/19/16 07:10 08/19/16 10:16 08/19/16 07:10 General appearance: Present: no acute distress, well-nourished - EENT Eyes: Present: PERRL ENT: hearing intact, clear oral mucosa - Neck Neck: Present: supple, normal ROM - Respiratory Respiratory effort: normal Respiratory: bilateral: CTA - Cardiovascular Heart Sounds: Present: S1 & S2. Absent: rub, click - Extremities Extremities: pulses symmetrical, No edema Peripheral Pulses: within normal limits - Abdominal General gastrointestinal: Present: soft, non-tender, non-distended, normal bowel sounds Male genitourinary: Present: normal - Integumentary Integumentary: Present: clear, warm, dry - Musculoskeletal Musculoskeletal: gait normal, strength equal bilaterally - Psychiatric Psychiatric: appropriate mood/affect, intact judgment & insight - Neurologic Neurologic: CNII-XII intact, moves all extremities Plan Follow up with: KATY BAUGH DO [Primary Care Provider] - 7 Days Prescriptions: Insulin Glargine,Hum.rec.anlog [Lantus Solostar] 50 units SQ QHS #5 pen metFORMIN [Glucophage] 1,000 mg PO BIDDIAB #60 tablet glipiZIDE XL [Glucotrol Xl] 10 mg PO QDDIAB #60 tablet Hydrochlorothiazide [HCTZ] 25 mg PO DAILY #30 capsule Insulin Aspart [NovoLOG Flexpen] 15 units SQ AC #5 pen Lisinopril [Zestril TAB] 20 mg PO QDAY #30 tablet
[2016-08-19 14:57] VITALS: BP 130/60
== END 2016-08-19 19:34 | disposition home or self-care (01) | DRG 638 ==
LOC: ED 22:46 → CC1 08-18 05:04 → 3A 08-18 16:26
PROVIDERS: ADMIT Internal Medicine; ATTEND Internal Medicine
PROC: 4A033R1 Measurement of Arterial Saturation, Peripheral, Percutaneous Approach (ICD-10-PCS; principal; 2016-08-18)
DX: E13.10 Other specified diabetes mellitus with ketoacidosis without coma (principal); Z68.44 Body mass index [BMI] 60.0-69.9, adult; E66.01 Morbid (severe) obesity due to excess calories; E86.0 Dehydration; I10 Essential (primary) hypertension; Z83.3 Family history of diabetes mellitus; Z71.3 Dietary counseling and surveillance
CPT/HCPCS: 36415; 80048; 81001; 82010; 82805; 82962; 83036; 83735; 84100; 85025; 96361; 96372; 96374; 96376; J1650; J1815; J1818; J7030

== ENCOUNTER 2016-08-20 22:45 | Emergency (ER) | payer OTHER ==
[2016-08-20 22:57] VITALS: BP 126/86
[2016-08-20 23:41] LABS: Basophils % (Auto) 0.3 % (0.0-1.8); Eosinophils % (Auto) 1.8 % (0.0-4.3); Hematocrit 43.7 % (35.5-45.6); Hemoglobin 14.9 gm/dl (11.8-15.2); Mean Corpuscular HGB Conc 34 % (32-34); Mean Corpuscular Hemoglobin 32 pg (28-32); Mean Corpuscular Volume 93 fl (84-94); Platelet Count 275 K/mm3 (140-440); Red Blood Count 4.72 M/mm3 (3.65-5.03); Red Cell Distribution Width 12.5 % (13.2-15.2); White Blood Count 7.4 K/mm3 (4.5-11.0)
[2016-08-21 00:36] LABS: Anion Gap 20 mmol/L; B-Hydroxybutyrate 9.1 mg/dL (0.2-2.8); Blood Urea Nitrogen 12 mg/dL (9-20); Carbon Dioxide 23 mmol/L (22-30); Chloride 91.1 mmol/L (98-107); Glucose 357 mg/dL (75-100); Sodium 130 mmol/L (137-145)
[2016-08-21 04:50] LABS: Bacteria,Urine 1+ /HPF (Negative); Bilirubin,Urine NEG (Negative); Blood,Urine NEG (Negative); Ketones,Urine 20 mg/dL (Negative); Leukocyte Esterase,Urine NEG (Negative); Mucus,Urine FEW /HPF; Nitrite,Urine NEG (Negative); Protein,Urine <15 mg/dL mg/dL (Negative); Urobilinogen,Urine < 2.0 mg/dL (<2.0)
--- NOTE | 2016-08-21 19:54 | ED Elopement Review ---
ED Pt Elopement review - Results review Lab results: Laboratory Tests 08/20/16 08/20/16 08/20/16 22:48 23:27 23:27 WBC 7.4 RBC 4.72 Hgb 14.9 Hct 43.7 MCV 93 MCH 32 MCHC 34 RDW 12.5 L Plt Count 275 Lymph % (Auto) 27.8 [place] % (Auto) 10.1 H Eos % (Auto) 1.8 Baso % (Auto) 0.3 Lymph # 2.0 [place] # 0.7 Eos # 0.1 Baso # 0.0 Seg Neutrophils % 60.0 Seg Neutrophils # 4.4 VBG pH Sodium 130 L D Potassium 4.0 Chloride 91.1 L Carbon Dioxide 23 Anion Gap 20 BUN 12 Creatinine 0.8 Estimated GFR > 60 BUN/Creatinine Ratio 15.00 Glucose 357 H POC Glucose 358 H Calcium 9.0 Urine Color Urine Turbidity Urine pH Ur Specific [place] Urine Protein Urine Glucose (UA) Urine Ketones Urine Blood Urine Nitrite Urine Bilirubin Urine Urobilinogen Ur Leukocyte Esterase Urine WBC (Auto) Urine RBC (Auto) U Epithel Cells (Auto) Urine Bacteria (Auto) Urine Mucus Ketones 9.1 H 08/20/16 08/21/16 23:27 03:53 WBC RBC Hgb Hct MCV MCH MCHC RDW Plt Count Lymph % (Auto) [place] % (Auto) Eos % (Auto) Baso % (Auto) Lymph # [place] # Eos # Baso # Seg Neutrophils % Seg Neutrophils # VBG pH 7.385 Sodium Potassium Chloride Carbon Dioxide Anion Gap BUN Creatinine Estimated GFR BUN/Creatinine Ratio Glucose POC Glucose Calcium Urine Color Yellow Urine Turbidity Clear Urine pH 5.0 Ur Specific [place] 1.033 H Urine Protein <15 mg/dl Urine Glucose (UA) >=500 Urine Ketones 20 Urine Blood Neg Urine Nitrite Neg Urine Bilirubin Neg Urine Urobilinogen < 2.0 Ur Leukocyte Esterase Neg Urine WBC (Auto) 10.0 H Urine RBC (Auto) 1.0 U Epithel Cells (Auto) 2.0 Urine Bacteria (Auto) 1+ Urine Mucus Few Ketones - Call Back decision Pt Call Back Decision: No action required
== END 2016-08-21 03:52 | disposition left against medical advice (07) ==
LOC: ED 22:45
DX: Z01.89 Encounter for other specified special examinations (principal); E11.9 Type 2 diabetes mellitus without complications; Z53.21 Procedure and treatment not carried out due to patient leaving prior to being seen by health care provider
CPT/HCPCS: 36415; 80048; 81001; 82010; 82805; 82962; 85025